=== PATIENT | male | born 1970 | race African-American/Black ===

== ENCOUNTER 2020-03-18 12:08 | Emergency (ER) | payer MEDICAID, OTHER ==
[~2020-03-18] VITALS: Ht 193 cm; Wt 113.4 kg
[2020-03-18 12:09] VITALS: BP 151/93
== END 2020-03-18 13:21 | disposition home or self-care (01) ==
LOC: ER 12:08
DX: T16.1XXA Foreign body in right ear, initial encounter (principal); H60.91 Unspecified otitis externa, right ear; X58.XXXA Exposure to other specified factors, initial encounter; Y93.89 Activity, other specified; Y92.89 Other specified places as the place of occurrence of the external cause; Y99.8 Other external cause status

== ENCOUNTER 2020-04-25 13:50 | Emergency (ER) | payer MEDICAID ==
[~2020-04-25] VITALS: Ht 193 cm; Wt 104.3 kg
[2020-04-25 15:22] LABS: Basophils # (auto) 0 10 ^3/uL (0-0.2); Basophils % (auto) 0.5 % (0.0-2.0); Eosinophils # (auto) 0.2 10 ^3/uL (0-0.8); Eosinophils % (auto) 3.6 % (0.0-7.0); Hematocrit 42.8 % (41.0-53.0); Hemoglobin 14.2 g/dL (13.5-17.5); Lymphocytes # (auto) 1.5 10 ^3/uL (0.4-5.4); Lymphocytes % (auto) 24.5 % (10.0-50.0); Mean Corpuscular Hemoglobin 33.5 pg (28.0-32.0); Mean Corpuscular Hgb Conc. 33.2 g/dL (32.0-36.0); Mean Corpuscular Volume 100.9 fL (80.0-100.0); Monocytes # (auto) 0.7 10 ^3/uL (0-1.3); Monocytes % (auto) 11.7 % (0.0-12.0); Neutrophils # (auto) 3.7 10 ^3/uL (1.6-8.6); Neutrophils % (auto) 59.7 % (37.0-80.0); Nucleated Red Blood Cells % 0.1 %; Platelet Count (auto) 247 10^3/uL (140-450); Red Blood Cells 4.24 10^6/uL (4.5-5.90); Red Cell Distribution Width 13.2 % (11.8-14.3); White Blood Cell 6.2 10^3/uL (4.4-10.8)
[2020-04-25 15:43] LABS: Albumin 3.5 g/dL (3.4-5.0); Calcium 8.4 mg/dL (8.5-10.1); Potassium 4.8 mmol/L (3.5-5.1)
[2020-04-25] MEDS ORDERED: ENOXAPARIN SOD 100 MG/1 ML SYRINGE SC ONE (15:45)
[2020-04-25 15:48] LABS: BUN/Creatinine Ratio 12.8; Bilirubin, Total 0.5 mg/dL (0.2-1.0); Total Protein 7.6 g/dL (6.4-8.2)
[2020-04-25] MEDS ORDERED: SODIUM CHLORIDE 0.9% 1,000 ML IV ONE (16:15)
[2020-04-25 16:27] LABS: INR 0.96 (0.9-1.15); Partial Thromboplastin Time 24.5 sec (23.0-31.2)
[2020-04-25] MEDS ORDERED: IOHEXOL 350 MG/ML 100ML IJ ONE (17:48)
[2020-04-25 18:42] VITALS: BP 125/84
== END 2020-04-25 19:08 | disposition left against medical advice (07) ==
LOC: ER 13:50
DX: I82.401 Acute embolism and thrombosis of unspecified deep veins of right lower extremity (principal); R91.8 Other nonspecific abnormal finding of lung field; F12.10 Cannabis abuse, uncomplicated
CPT/HCPCS: 36415; 71275; 80053; 83880; 84484; 85025; 85610; 85730; 93005; 93971; 96360; 96361; 96372; 99285; J1650; J7030; Q9967

== ENCOUNTER 2020-05-03 04:42 | Emergency (ER) | payer MEDICAID ==
[~2020-05-03] VITALS: Ht 190.5 cm; Wt 117.9 kg
[2020-05-03 06:40] LABS: Basophils # (auto) 0 10 ^3/uL (0-0.2); Basophils % (auto) 0.4 % (0.0-2.0); Eosinophils # (auto) 0.2 10 ^3/uL (0-0.8); Eosinophils % (auto) 2.7 % (0.0-7.0); Lymphocytes # (auto) 1.1 10 ^3/uL (0.4-5.4); Lymphocytes % (auto) 18.5 % (10.0-50.0); Mean Corpuscular Hemoglobin 33.4 pg (28.0-32.0); Mean Corpuscular Hgb Conc. 33.3 g/dL (32.0-36.0); Mean Corpuscular Volume 100.3 fL (80.0-100.0); Monocytes # (auto) 0.7 10 ^3/uL (0-1.3); Monocytes % (auto) 11.8 % (0.0-12.0); Neutrophils # (auto) 3.8 10 ^3/uL (1.6-8.6); Neutrophils % (auto) 66.6 % (37.0-80.0); Nucleated Red Blood Cells % 0.1 %; Platelet Count (auto) 236 10^3/uL (140-450); Red Blood Cells 4.18 10^6/uL (4.5-5.90); Red Cell Distribution Width 13.4 % (11.8-14.3); White Blood Cell 5.7 10^3/uL (4.4-10.8)
[2020-05-03 06:56] LABS: Albumin 3.3 g/dL (3.4-5.0); Calcium 8.7 mg/dL (8.5-10.1); Potassium 4.3 mmol/L (3.5-5.1)
[2020-05-03 07:01] LABS: BUN/Creatinine Ratio 12.1; Bilirubin, Total 0.4 mg/dL (0.2-1.0); Total Protein 7.3 g/dL (6.4-8.2)
[2020-05-03] MEDS ORDERED: ONDANSETRON HCL 4 MG/2 ML VIAL IV ONE (07:45)
[2020-05-03] MEDS ORDERED: MORPHINE SULFATE 4 MG/ML SYR/VIAL IV ONE (07:45)
[2020-05-03] MEDS ORDERED: ENOXAPARIN SOD 100 MG/1 ML SYRINGE SC ONE (07:45)
[2020-05-03 08:24] LABS: INR 1.02 (0.9-1.15); Partial Thromboplastin Time 29.5 sec (23.0-31.2)
[2020-05-03 08:50] VITALS: BP 135/83
[2020-05-03] MEDS ORDERED: POTA8TAB2 PO (09:12)
[2020-05-03] MEDS ORDERED: LORA0.5T20 PO (09:12)
[2020-05-03] MEDS ORDERED: ATEN50TA PO (09:12)
== END 2020-05-03 13:38 | disposition home or self-care (01) ==
LOC: ER 04:42
DX: I82.401 Acute embolism and thrombosis of unspecified deep veins of right lower extremity (principal)
CPT/HCPCS: 36415; 80053; 85025; 85610; 85730; 96372; 96374; 96375; 99284; J1650; J2270; J2405

== ENCOUNTER 2020-06-22 08:43 | Emergency (ER) | payer MEDICAID ==
[~2020-06-22] VITALS: Ht 190.5 cm; Wt 122.5 kg
[2020-06-22 11:04] LABS: Basophils # (auto) 0 10 ^3/uL (0-0.2); Eosinophils # (auto) 0.1 10 ^3/uL (0-0.8); Hemoglobin 13.4 g/dL (13.5-17.5); Lymphocytes # (auto) 1.2 10 ^3/uL (0.4-5.4); Mean Corpuscular Hgb Conc. 33.1 g/dL (32.0-36.0); Nucleated Red Blood Cells % 0.1 %
[2020-06-22 11:06] LABS: Basophils % (auto) 0.3 % (0.0-2.0); Eosinophils % (auto) 1.5 % (0.0-7.0); Hematocrit 40.5 % (41.0-53.0); Mean Corpuscular Hemoglobin 33.9 pg (28.0-32.0); Mean Corpuscular Volume 102.3 fL (80.0-100.0); Monocytes # (auto) 0.6 10 ^3/uL (0-1.3); Monocytes % (auto) 8.7 % (0.0-12.0); Neutrophils # (auto) 5.2 10 ^3/uL (1.6-8.6); Neutrophils % (auto) 72.5 % (37.0-80.0); Platelet Count (auto) 280 10^3/uL (140-450); Red Blood Cells 3.96 10^6/uL (4.5-5.90); White Blood Cell 7.2 10^3/uL (4.4-10.8)
[2020-06-22 11:19] LABS: Anion Gap 4 (5-15); Blood Urea Nitrogen 14 mg/dL (7-18); Calcium 8.6 mg/dL (8.5-10.1); Carbon Dioxide 26 mmol/L (21-32); Chloride 109 mmol/L (98-107); Glucose 90 mg/dL (74-106); Potassium 4.2 mmol/L (3.5-5.1); Sodium 139 mmol/L (136-145)
[2020-06-22 11:24] LABS: INR 0.97 (0.9-1.15); Partial Thromboplastin Time 28.8 sec (23.0-31.2)
[2020-06-22 11:25] LABS: Alanine Aminotransferase 24 U/L (16-61); Alkaline Phosphatase 70 U/L (45-117); Aspartate Aminotransferase 20 U/L (15-37); Bilirubin, Total 0.4 mg/dL (0.2-1.0); GFR African American 69 mL/min; GFR Non-African American 57 mL/min; Total Protein 7.8 g/dL (6.4-8.2)
[2020-06-22 12:53] VITALS: BP 140/78
== END 2020-06-22 12:55 | disposition home or self-care (01) ==
LOC: ER 08:43
DX: I82.401 Acute embolism and thrombosis of unspecified deep veins of right lower extremity (principal)
CPT/HCPCS: 36415; 71046; 80053; 83880; 84484; 85025; 85610; 85730; 93970

== ENCOUNTER 2022-04-22 06:43 | Inpatient (IN) | payer MEDICAID ==
[~2022-04-22] VITALS: Ht 193 cm; Wt 104.3 kg
[2022-04-22 08:12] LABS: Albumin 3.2 g/dL (3.4-5.0); Basophils # (auto) 0 10 ^3/uL (0-0.2); Basophils % (auto) 0.6 % (0.0-2.0); Calcium 8.7 mg/dL (8.5-10.1); Eosinophils # (auto) 0.2 10 ^3/uL (0-0.8); Eosinophils % (auto) 2.8 % (0.0-7.0); Hematocrit 41.7 % (41.0-53.0); Hemoglobin 14.1 g/dL (13.5-17.5); Lymphocytes # (auto) 1.1 10 ^3/uL (0.4-5.4); Lymphocytes % (auto) 16.8 % (10.0-50.0); Mean Corpuscular Hemoglobin 33.4 pg (28.0-32.0); Mean Corpuscular Hgb Conc. 33.8 g/dL (32.0-36.0); Mean Corpuscular Volume 98.8 fL (80.0-100.0); Monocytes # (auto) 0.6 10 ^3/uL (0-1.3); Monocytes % (auto) 9.4 % (0.0-12.0); Neutrophils # (auto) 4.6 10 ^3/uL (1.6-8.6); Neutrophils % (auto) 70.4 % (37.0-80.0); Nucleated Red Blood Cells % 0.1 %; Potassium 4.4 mmol/L (3.5-5.1); Red Blood Cells 4.22 10^6/uL (4.5-5.90); Red Cell Distribution Width 13.5 % (11.8-14.3); White Blood Cell 6.6 10^3/uL (4.4-10.8)
[2022-04-22 08:15] LABS: BUN/Creatinine Ratio 16.7; Bilirubin, Total 0.6 mg/dL (0.2-1.0); Total Protein 7.4 g/dL (6.4-8.2)
[2022-04-22] MEDS ORDERED: ASPirin 325 MG TAB PO ONE (08:30)
[2022-04-22] MEDS ORDERED: IOHEXOL 350 MG/ML 100ML IJ ONE (09:00)
[2022-04-22] MEDS ORDERED: MORPHINE SULFATE INJ 2 MG/ml SYRG IV PRN (10:45)
[2022-04-22] MEDS ORDERED: ONDANSETRON HCL 4 MG/2 ML VIAL IV PRN (10:45)
[2022-04-22] MEDS ORDERED: NITROGLYCERIN 0.4 MG SL TAB SL PRN ×2 (10:45)
[2022-04-22] MEDS ORDERED: ALUM & MAG HYDROX-SIMETH LIQ(MAALOX) 30 ML PO ONE (10:45)
[2022-04-22] MEDS ORDERED: ACETAMINOPHEN 325 MG TAB PO PRN (10:45)
[2022-04-22] MEDS ORDERED: MORPHINE SULFATE 4 MG/ML SYR/VIAL IV PRN (10:45)
[2022-04-22 12:03] LABS: INR 0.96 (0.9-1.15); Partial Thromboplastin Time 25.6 sec (24.6-33.4)
[2022-04-22 12:09] LABS: Creatinine, Urine 61 mg/dL (30.0-125.0); Sodium Urine 119 mmol/L (40-220)
[2022-04-22 12:11] LABS: Urine Bacteria NONE SEEN /hpf (None Seen); Urine Blood Negative /uL (Negative); Urine Specific Gravity 1.034 (1.001-1.035); Urine WBC 6 /hpf (0 - 3)
[2022-04-22] MEDS ORDERED: ENOXAPARIN SOD 100 MG/1 ML SYRINGE SC ONE (12:45)
[2022-04-22] MEDS: HYDROcodone-ACET 5/325MG TAB PO PRN (12:49)
[2022-04-22] MEDS ORDERED: TAMSULOSIN HYDROCHLORIDE 0.4 MG CAP PO SCH (18:00)
[2022-04-22] MEDS: METOPROLOL TARTRATE 25 MG TAB PO SCH ×2 (22:00→22:16)
[2022-04-22] MEDS: ATORVASTATIN 20 MG TAB PO SCH ×2 (22:00→22:15)
[2022-04-22] MEDS: ENOXAPARIN SOD 100 MG/1 ML SYRINGE SC SCH (22:16)
[2022-04-23 01:26] VITALS: BP 130/81
[2022-04-23] MEDS: HYDROcodone-ACET 5/325MG TAB PO PRN ×2 (02:19→10:44)
[2022-04-23 05:00] VITALS: BP 143/83
[2022-04-23 06:04] LABS: Albumin 2.9 g/dL (3.4-5.0); Calcium 8.5 mg/dL (8.5-10.1); Potassium 4.4 mmol/L (3.5-5.1)
[2022-04-23 06:09] LABS: BUN/Creatinine Ratio 15.3; Bilirubin, Total 0.7 mg/dL (0.2-1.0); Total Protein 6.3 g/dL (6.4-8.2)
[2022-04-23 08:20] VITALS: BP 134/81
[2022-04-23] MEDS ORDERED: ASPirin 325 MG TAB PO SCH (10:00)
[2022-04-23] MEDS ORDERED: DOCUSATE SOD 100 MG CAP PO SCH (10:00)
[2022-04-23] MEDS ORDERED: PANTOPRAZOLE 40 MG/10 ML VIAL INJ IV SCH (10:00)
[2022-04-23] MEDS: METOPROLOL TARTRATE 25 MG TAB PO SCH (10:16)
[2022-04-23] MEDS: ENOXAPARIN SOD 100 MG/1 ML SYRINGE SC SCH (10:16)
[2022-04-23 12:25] VITALS: BP 130/79
[2022-04-23] MEDS ORDERED: cefTRIAXone 1GM/50ML D5W 50 ML IV ONE (15:00)
[2022-04-23 16:20] VITALS: BP 122/83
[2022-04-23] MEDS ORDERED: ASPI1TAB20 PO (16:48)
[2022-04-23] MEDS ORDERED: CIPR250T3 PO (16:48)
[2022-04-23] MEDS ORDERED: DABI150C5 PO (17:09)
[2022-04-23 17:42] VITALS: BP 126/70
[2022-04-24] MEDS ORDERED: cefTRIAXone 1GM/50ML D5W 50 ML IV SCH (09:00)
== END 2022-04-23 16:30 | disposition home or self-care (01) | DRG 203 ==
LOC: ER 06:43 → TELE 11:01 → TELE-WESTW 23:51
PROVIDERS: ADMIT Nurse Practitioner Family; ATTEND Nurse Practitioner Family
DX: R07.89 Other chest pain (principal); N17.9 Acute kidney failure, unspecified; I82.509 Chronic embolism and thrombosis of unspecified deep veins of unspecified lower extremity; Z20.822 Contact with and (suspected) exposure to COVID-19; N39.0 Urinary tract infection, site not specified; K80.20 Calculus of gallbladder without cholecystitis without obstruction; E78.5 Hyperlipidemia, unspecified; N40.1 Benign prostatic hyperplasia with lower urinary tract symptoms; R33.8 Other retention of urine; Z80.42 Family history of malignant neoplasm of prostate; Z86.15 Personal history of latent tuberculosis infection; R91.8 Other nonspecific abnormal finding of lung field
CPT/HCPCS: 36415; 71046; 71275; 73110; 74176; 76775; 80053; 80061; 81001; 82570; 83690; 83735; 84154; 84300; 84484; 85025; 85379; 85610; 85730; 86677; 87086; 87426; 93005; 93306; 93971; 96372; 96374; 96375; C9113; G0378; J0696; J2405

== ENCOUNTER 2023-03-22 12:16 | Inpatient (IN) | payer MEDICAID ==
[~2023-03-22] VITALS: Ht 190.5 cm; Wt 119.6 kg
[~2023-03-22 12:16] MED LIST: CIPR250T3 PO; DABI150C5 PO
[2023-03-22 12:46] LABS: Urine Bacteria NONE SEEN /hpf (None Seen); Urine Blood Negative /uL (Negative); Urine Clarity Clear (Clear); Urine Color Yellow (Yellow); Urine Protein, UAD Negative (Negative); Urine Urobilinogen Normal (Negative); Urine WBC 2 /hpf (0 - 3)
[2023-03-22 13:00] LABS: Basophils # (auto) 0 10 ^3/uL (0-0.2); Basophils % (auto) 0.7 % (0.0-2.0); Eosinophils # (auto) 0.2 10 ^3/uL (0-0.8); Eosinophils % (auto) 2.7 % (0.0-7.0); Hematocrit 44.5 % (41.0-53.0); Hemoglobin 14.8 g/dL (13.5-17.5); Lymphocytes # (auto) 1.7 10 ^3/uL (0.4-5.4); Lymphocytes % (auto) 27.6 % (10.0-50.0); Mean Corpuscular Hemoglobin 33.6 pg (28.0-32.0); Mean Corpuscular Hgb Conc. 33.3 g/dL (32.0-36.0); Mean Corpuscular Volume 100.7 fL (80.0-100.0); Monocytes # (auto) 0.8 10 ^3/uL (0-1.3); Monocytes % (auto) 12.9 % (0.0-12.0); Neutrophils # (auto) 3.5 10 ^3/uL (1.6-8.6); Neutrophils % (auto) 56.1 % (37.0-80.0); Nucleated Red Blood Cells % 0.2 %; Red Blood Cells 4.41 10^6/uL (4.5-5.90); Red Cell Distribution Width 13.5 % (11.8-14.3); White Blood Cell 6.2 10^3/uL (4.4-10.8)
[2023-03-22 13:22] LABS: Alanine Aminotransferase 21 U/L (7-40); Albumin 4.1 g/dL (3.2-4.8); Alkaline Phosphatase 72 U/L (46-116); Anion Gap 6 (5-15); Aspartate Aminotransferase 20 U/L (13-40); Bilirubin, Total 0.9 mg/dL (0.2-1.0); Blood Urea Nitrogen 13 mg/dL (9-23); Calcium 9.1 mg/dL (8.7-10.4); Carbon Dioxide 25 mmol/L (20-30); Chloride 108 mmol/L (98-107); Glucose 90 mg/dL (74-106); Magnesium 1.7 mg/dL (1.6-2.6); Potassium 4.1 mmol/L (3.5-5.1); Sodium 139 mmol/L (136-145); Total Protein 7.7 g/dL (5.7-8.2)
[2023-03-22] MEDS ORDERED: IOHEXOL 350 MG/ML 100ML IJ ONE (13:27)
[2023-03-22] MEDS ORDERED: MORPHINE SULFATE INJ 2 MG/ml SYRG IV PRN (17:15)
[2023-03-22] MEDS ORDERED: NITROGLYCERIN 0.4 MG SL TAB SL PRN (17:15)
[2023-03-22 19:16] LABS: INR 1.01 (0.9-1.15); Partial Thromboplastin Time 25.9 SEC (24.5-34.5); Prothrombin Time 10.6 sec (9.3-11.8)
[2023-03-22 19:21] LABS: Triglycerides 221 mg/dL (< 150)
[2023-03-22 19:22] LABS: LDL Cholesterol 108 mg/dL (< 100)
[2023-03-22 19:23] LABS: Cholesterol 181 mg/dL (< 200); HDL Cholesterol 45 mg/dL (40-59)
[2023-03-22 19:25] VITALS: PULSE 91; RESP 20; O2SAT 97
[2023-03-22] MEDS: ENOXAPARIN SOD 120 MG/0.8 ML SYRINGE SC SCH (19:34)
[2023-03-22 19:51] LABS: Amphetamine Screen, Urine Neg (NEGATIVE); Barbiturate Scree,Urine Neg (NEGATIVE); Benzodiazephine Screen, Urine Neg (NEGATIVE); Cocaine Screen, Urine Neg (NEGATIVE)
[2023-03-22 19:52] LABS: Cannabinoid Screen, Urine Neg (NEGATIVE); Opiate Scree,Urine Neg (NEGATIVE); Phencyclidine Screen, Urine Neg (NEGATIVE)
[2023-03-22] MEDS ORDERED: ERGOCALCIFEROL 50,000 UNIT(1.25MG) CAP PO SCH (22:00)
[2023-03-23] VITALS (7 sets, daily range): BP systolic 138–157; BP diastolic 86–103; PULSE 72–88; RESP 18–20; TEMP 97.5–98.7; O2SAT 93–100
[2023-03-23] MEDS: ENOXAPARIN SOD 120 MG/0.8 ML SYRINGE SC SCH ×3 (06:08→17:44)
[2023-03-23] MEDS: PANTOPRAZOLE 40 MG TAB PO SCH (10:08)
[2023-03-23] MEDS: GEMFIBROZIL 600 MG TAB PO SCH (10:08)
[2023-03-23] MEDS: amLODIPine BESYLATE 5 MG TAB PO SCH (10:08)
[2023-03-23] MEDS ORDERED: ACETAMINOPHEN 500 MG TAB PO PRN (10:30)
[2023-03-23 10:44] LABS: Hepatitis B Surface Antibody Positive (Negative)
[2023-03-23 10:56] LABS: Hepatitis B Surface Antigen Negative (Negative)
[2023-03-23 11:06] LABS: Alanine Aminotransferase 19 U/L (7-40); Albumin 3.8 g/dL (3.2-4.8); Alkaline Phosphatase 75 U/L (46-116); Anion Gap 5 (5-15); Aspartate Aminotransferase 18 U/L (13-40); BUN/Creatinine Ratio 8.8 (10.0-20.0); Bilirubin, Total 1.2 mg/dL (0.2-1.0); Blood Urea Nitrogen 12 mg/dL (9-23); Calcium 9.1 mg/dL (8.7-10.4); Carbon Dioxide 29 mmol/L (20-30); Chloride 106 mmol/L (98-107); Glucose 100 mg/dL (74-106); Magnesium 1.8 mg/dL (1.6-2.6); Potassium 4.3 mmol/L (3.5-5.1); Sodium 140 mmol/L (136-145); Total Protein 7.3 g/dL (5.7-8.2)
[2023-03-23 11:16] LABS: Basophils # (auto) 0 10 ^3/uL (0-0.2); Basophils % (auto) 0.5 % (0.0-2.0); Eosinophils # (auto) 0.1 10 ^3/uL (0-0.8); Eosinophils % (auto) 2.7 % (0.0-7.0); Hematocrit 43.8 % (41.0-53.0); Hemoglobin 14.8 g/dL (13.5-17.5); Lymphocytes # (auto) 1.4 10 ^3/uL (0.4-5.4); Lymphocytes % (auto) 27.1 % (10.0-50.0); Mean Corpuscular Hemoglobin 33.8 pg (28.0-32.0); Mean Corpuscular Hgb Conc. 33.8 g/dL (32.0-36.0); Monocytes # (auto) 0.6 10 ^3/uL (0-1.3); Neutrophils # (auto) 2.9 10 ^3/uL (1.6-8.6); Neutrophils % (auto) 57.7 % (37.0-80.0); Nucleated Red Blood Cells % 0.2 %; Red Blood Cells 4.38 10^6/uL (4.5-5.90); Red Cell Distribution Width 13.5 % (11.8-14.3)
[2023-03-23 11:17] LABS: Hepatitis B Core IgM Negative
[2023-03-23] MEDS: traMADol HCL 50 MG TAB PO PRN (11:41)
[2023-03-23] MEDS: diphenhdrAMINE HCL 50 MG/1 ML VL IV PRN (16:31)
[2023-03-23] MEDS ORDERED: TAMSULOSIN HYDROCHLORIDE 0.4 MG CAP PO SCH (18:00)
[2023-03-24 05:00] VITALS: BP 140/89; PULSE 68; RESP 20; TEMP 97.9; O2SAT 96
[2023-03-24] MEDS: ENOXAPARIN SOD 120 MG/0.8 ML SYRINGE SC SCH (05:45)
[2023-03-24] MEDS: diphenhdrAMINE HCL 50 MG/1 ML VL IV PRN (05:48)
[2023-03-24] MEDS: traMADol HCL 50 MG TAB PO PRN (05:52)
[2023-03-24 06:06] LABS: RPR Non Reactive (Non Reactive)
[2023-03-24 07:30] VITALS: BP 141/86; PULSE 86; TEMP 36.6
[2023-03-24 07:39] LABS: Basophils # (auto) 0 10 ^3/uL (0-0.2); Basophils % (auto) 0.5 % (0.0-2.0); Eosinophils # (auto) 0.1 10 ^3/uL (0-0.8); Hemoglobin 15.3 g/dL (13.5-17.5); Lymphocytes # (auto) 1.3 10 ^3/uL (0.4-5.4); Neutrophils # (auto) 2.3 10 ^3/uL (1.6-8.6); Nucleated Red Blood Cells % 0.2 %; White Blood Cell 4.3 10^3/uL (4.4-10.8)
[2023-03-24 07:42] LABS: Eosinophils % (auto) 3.1 % (0.0-7.0); Hematocrit 45.3 % (41.0-53.0); Lymphocytes % (auto) 30.5 % (10.0-50.0); Mean Corpuscular Hemoglobin 33.7 pg (28.0-32.0); Mean Corpuscular Hgb Conc. 33.7 g/dL (32.0-36.0); Mean Corpuscular Volume 99.9 fL (80.0-100.0); Monocytes # (auto) 0.5 10 ^3/uL (0-1.3); Monocytes % (auto) 12.6 % (0.0-12.0); Neutrophils % (auto) 53.3 % (37.0-80.0); Red Blood Cells 4.53 10^6/uL (4.5-5.90); Red Cell Distribution Width 13.3 % (11.8-14.3)
[2023-03-24 07:53] LABS: Alanine Aminotransferase 17 U/L (7-40); Albumin 3.8 g/dL (3.2-4.8); Alkaline Phosphatase 72 U/L (46-116); Anion Gap 6 (5-15); Aspartate Aminotransferase 15 U/L (13-40); BUN/Creatinine Ratio 8.5 (10.0-20.0); Blood Urea Nitrogen 11 mg/dL (9-23); Calcium 9.2 mg/dL (8.7-10.4); Carbon Dioxide 28 mmol/L (20-30); Chloride 105 mmol/L (98-107); Glucose 104 mg/dL (74-106); Potassium 4.3 mmol/L (3.5-5.1); Sodium 139 mmol/L (136-145)
[2023-03-24 07:54] LABS: Bilirubin, Total 1.1 mg/dL (0.2-1.0); Total Protein 7.4 g/dL (5.7-8.2)
[2023-03-24 08:00] VITALS: O2SAT 93
[2023-03-24 09:00] VITALS: BP 115/77; PULSE 79; RESP 18; TEMP 97.7; O2SAT 96
[2023-03-24] MEDS ORDERED: cefTRIAXone 1GM/50ML D5W 50 ML IV ONE (09:15)
[2023-03-24] MEDS ORDERED: AZITHROMYCIN 500MG/ 250ML 250 ML IV ONE (09:15)
[2023-03-24] MEDS ORDERED: hydrALAZINE HCL 20 MG/ML VL IV PRN (09:15)
[2023-03-24] MEDS: GEMFIBROZIL 600 MG TAB PO SCH (09:37)
[2023-03-24] MEDS: PANTOPRAZOLE 40 MG TAB PO SCH (09:38)
[2023-03-24] MEDS: amLODIPine BESYLATE 5 MG TAB PO SCH (09:38)
[2023-03-24] MEDS ORDERED: GEMF600T PO (09:52)
[2023-03-24] MEDS ORDERED: AMLO1TAB22 PO (09:52)
[2023-03-24] MEDS ORDERED: CHOL1CAP47 PO (09:52)
[2023-03-24] MEDS ORDERED: TAMS0.4C36 PO (09:52)
[2023-03-24] MEDS ORDERED: APIX5TAB PO (09:52)
[2023-03-24] MEDS ORDERED: AZITTAB PO (09:52)
[2023-03-24] MEDS ORDERED: AZITHROMYCIN 500MG/ 250ML 250 ML IV SCH (10:00)
[2023-03-24] MEDS ORDERED: HYDROcodone-ACET 5/325MG TAB PO PRN (11:30)
[2023-03-24 13:29] VITALS: BP 136/85; PULSE 89; RESP 17; TEMP 97.3; O2SAT 94
[2023-03-24 14:06] LABS: Hepatitis B Core Total Antibod Negative (Negative)
[2023-03-24 15:40] VITALS: BP 127/88; TEMP 36.3
[2023-03-24] MEDS ORDERED: APIXABAN 5 MG TAB PO SCH (22:00)
[2023-03-25 01:06] LABS: AFP Serum Tumor Marker <1.8 ng/mL (0.0-8.4); Cancer Antigen (CA) 125 10.8 U/mL (Not Estab.); Cancer Antigen (CA) 15-3 12.7 U/mL (0.0-25.0)
[2023-03-25 02:06] LABS: Chlamydia Trachomatis, NAA Negative (Negative); Neisseria gonorrhoeae, NAA Negative (Negative)
[2023-03-25 03:07] LABS: CA 27.29 15.7 U/mL (0.0-38.6)
[2023-03-25] MEDS ORDERED: cefTRIAXone 1GM/50ML D5W 50 ML IV SCH (09:00)
== END 2023-03-24 16:00 | disposition home or self-care (01) | DRG 197 ==
LOC: ER 12:16 → TELE 17:09 → TELE-WESTW 20:45
PROVIDERS: ADMIT Internal Medicine Geriatric Medicine; ATTEND Internal Medicine Geriatric Medicine
DX: I82.411 Acute embolism and thrombosis of right femoral vein (principal); I82.431 Acute embolism and thrombosis of right popliteal vein; E55.9 Vitamin D deficiency, unspecified; Z93.0 Tracheostomy status; J45.909 Unspecified asthma, uncomplicated; E78.1 Pure hyperglyceridemia; I10 Essential (primary) hypertension; K21.9 Gastro-esophageal reflux disease without esophagitis; R91.1 Solitary pulmonary nodule; N40.0 Benign prostatic hyperplasia without lower urinary tract symptoms; Z80.9 Family history of malignant neoplasm, unspecified; Z82.5 Family history of asthma and other chronic lower respiratory diseases; Z83.3 Family history of diabetes mellitus; Z86.711 Personal history of pulmonary embolism; Z86.718 Personal history of other venous thrombosis and embolism; Z87.891 Personal history of nicotine dependence; Z91.199 Patient's noncompliance with other medical treatment and regimen due to unspecified reason
CPT/HCPCS: 36415; 71046; 71275; 73610; 73630; 80053; 80061; 80307; 81001; 82105; 82306; 82378; 82607; 82746; 83036; 83735; 83880; 84311; 84443; 84484; 85025; 85379; 85610; 85613; 85670; 85705; 85730; 85732; 86300; 86304; 86592; 86703; 86705; 86706; 86803; 87340; 93005; 93306; 93925; 93971; 96372; G0378; J0696